=== PATIENT | female | born 1980 | race Two or more races ===

== ENCOUNTER 2020-01-13 16:04 | Emergency (ER) | payer MEDICAID, OTHER ==
[~2020-01-13] VITALS: Ht 157.5 cm; Wt 57.8 kg
[2020-01-13] MEDS ORDERED: PLEASE ENTER ALLERGIES MC SCH (17:00)
[2020-01-13] MEDS ORDERED: ASPIRIN 81 MG TABLET CHEW PO ONE (17:00)
[2020-01-13] MEDS ORDERED: PLEASE ENTER HEIGHT AND WEIGHT MC SCH (17:00)
[2020-01-13 17:36] LABS: BASOPHILS % (AUTO) 0 % (0-1); EOSINOPHILS % (AUTO) 0 % (1-7); LYMPHOCYTES % (AUTO) 11 % (22-44); MEAN CORPUSCULAR HEMOGLOBIN 29.6 pg (27.0-34.8); MEAN CORPUSCULAR HGB CONC 32.7 g/dL (32.4-35.8); MEAN PLATELET VOLUME 8.8 fL (7.4-10.4); MONOCYTES % (AUTO) 4 % (2-9); NEUTROPHILS % (AUTO) 85 % (42-75); PLATELET COUNT 242 x10^3/uL (130-400); RED BLOOD COUNT 4.56 x10^6/uL (3.82-5.3); RED CELL DISTRIBUTION WIDTH 13.5 % (9.6-15.2)
[2020-01-13 17:37] LABS: MD NO
[2020-01-13 17:40] LABS: ALBUMIN 4.1 g/dL (3.4-5.0); ANION GAP 3 mmol/L (5-15); CALCIUM 8.7 mg/dL (8.5-10.1); CHLORIDE 106 mmol/L (98-107); CREATININE 0.85 mg/dL (0.55-1.02)
[2020-01-13] MEDS ORDERED: ASPIRIN 81 MG TABLET CHEW ONE (17:59)
--- NOTE | 2020-01-13 18:01 | NUR ---
39/F. Reports R breast burning pain radiating to back starting this AM. Bilateral breast sores over 2-3 mnths. pt . Chills, nausea.
[2020-01-13] MEDS ORDERED: CEFTRIAXONE 1,000 MG ONE (18:27)
[2020-01-13] MEDS ORDERED: LIDOCAINE-MPF 1%, 5ML ONE (18:27)
[2020-01-13] MEDS ORDERED: ACETAMINOPHEN 325 MG TABLET ONE (18:27)
[2020-01-13] MEDS ORDERED: CEFTRIAXONE 1,000 MG IM ONE (18:30)
[2020-01-13] MEDS ORDERED: ACETAMINOPHEN 325 MG TABLET PO ONE (18:30)
[2020-01-13 18:45] VITALS: BP 105/56
--- NOTE | 2020-01-13 18:57 | NUR ---
Pt ambulatory at discharge. VSS. Verbalizes understanding of discharge instructions and prescription.
== END 2020-01-13 19:02 | disposition home or self-care (01) ==
LOC: ED 18:22
DX: N61.0 Mastitis without abscess (principal); R07.89 Other chest pain; R06.02 Shortness of breath
CPT/HCPCS: 36415; 71046; 80048; 82040; 83880; 85025; 93005; 96372; 99285; J0696

== ENCOUNTER 2020-01-31 16:40 | Emergency (ER) | payer MEDICAID ==
[~2020-01-31] VITALS: Ht 157.5 cm; Wt 57.3 kg
[2020-01-31 18:16] VITALS: BP 103/65
--- NOTE | 2020-01-31 18:17 | NUR ---
US COMPLETED. VSS. NAD NOTED
--- NOTE | 2020-01-31 19:03 | NUR ---
Report received from JAD Butler. This RN to assume care. Awaiting d/c.
--- NOTE | 2020-01-31 19:09 | NUR ---
Discharge instructions given. All questions and concerns addressed. Patient ambulatory with a steady gait. Belongings with patient.
== END 2020-01-31 19:11 | disposition home or self-care (01) ==
LOC: ED 17:40
DX: N61.0 Mastitis without abscess (principal)
CPT/HCPCS: 76642; 99284